=== PATIENT | female | born 1995 | race Two or more races ===

== ENCOUNTER 2022-03-13 14:00 | Inpatient (IN) | payer OTHER ==
[~2022-03-13] VITALS: Ht 160 cm; Wt 3.2 kg
[2022-03-18] MEDS ORDERED: PRENATAL TABLE1 EAC1 PO (22:22)
[2022-03-19] MEDS ORDERED: PEPCID AC10 MG PO (15:32)
[2022-03-21] MEDS ORDERED: IBU800 MG PO (13:42)
[2022-03-21] MEDS ORDERED: COLACE100 MG PO (13:43)
[2022-03-21] MEDS ORDERED: SIMETHICONE125 M1 PO (13:43)
== END 2022-03-21 14:30 | disposition home or self-care (01) | DRG 788 ==
LOC: SURG-SUITE 03-19 13:57 → LDR 03-19 13:57 → OB/GYN 03-19 22:08 → SURG-SUITE 03-20 08:28 → OB/GYN 03-28 14:00
PROVIDERS: ADMIT Obstetrics & Gynecology; ATTEND Obstetrics & Gynecology
PROC: 4A1HXCZ Monitoring of Products of Conception, Cardiac Rate, External Approach (ICD-10-PCS; 2022-03-19)
PROC: 10D00Z1 Extraction of Products of Conception, Low, Open Approach (ICD-10-PCS; principal; 2022-03-19 21:00)
DX: O63.0 Prolonged first stage (of labor) (principal); O62.0 Primary inadequate contractions; Z3A.38 38 weeks gestation of pregnancy; Z37.0 Single live birth; Z20.822 Contact with and (suspected) exposure to COVID-19

== ENCOUNTER 2022-03-18 21:24 | Outpatient (CLI) | payer OTHER ==
[2022-03-18] MEDS ORDERED: PRENATAL TABLE1 EAC1 PO (22:22)
[2022-03-19] MEDS ORDERED: PEPCID AC10 MG PO (15:32)
== END 2022-03-18 21:54 | disposition home or self-care (01) ==
LOC: NST 21:24
PROVIDERS: ATTEND Obstetrics & Gynecology
DX: Z34.83 Encounter for supervision of other normal pregnancy, third trimester (principal)

== ENCOUNTER 2023-03-03 11:52 | Emergency (ER) | payer OTHER ==
[~2023-03-03] VITALS: Ht 160 cm; Wt 64.9 kg
[~2023-03-03 11:52] MED LIST: COLACE100 MG PO; IBU800 MG PO; PEPCID AC10 MG PO; PRENATAL TABLE1 EAC1 PO; SIMETHICONE125 M1 PO
[2023-03-03] MEDS ORDERED: CYCLOBENZAPRINE10 MG PO (12:31)
== END 2023-03-03 12:40 | disposition home or self-care (01) ==
LOC: ER 11:52
DX: S33.5XXA Sprain of ligaments of lumbar spine, initial encounter (principal); X58.XXXA Exposure to other specified factors, initial encounter; Y93.B9 Activity, other involving muscle strengthening exercises; Y92.89 Other specified places as the place of occurrence of the external cause; Y99.9 Unspecified external cause status; Z88.6 Allergy status to analgesic agent